=== PATIENT | female | born 1965 | race African-American/Black ===

== ENCOUNTER 2017-02-14 21:23 | Emergency (ER) | payer MEDICAID ==
[~2017-02-14] VITALS: Ht 162.6 cm; Wt 44.0 kg
[~2017-02-14 21:23] MED LIST: ALBUTEROL; ALLERGY MED
[2017-02-14] MEDS ORDERED: IPRA4AER IH (21:53)
[2017-02-14] MEDS ORDERED: NAPR-58 PO (21:53)
[2017-02-14] MEDS ORDERED: GABA-531 PO (21:53)
[2017-02-14] MEDS ORDERED: PRED20TA3 PO (21:53)
[2017-02-14] MEDS ORDERED: NICO21T TD (21:53)
[2017-02-14 22:41] LABS: APPEARANCE,URINE CLEAR (CLEAR); GLUCOSE, URINE (UA) NEGATIVE (NEGATIVE); KETONES,URINE NEGATIVE (NEGATIVE); LEUKOCYTE ESTERASE ,URINE NEGATIVE (NEGATIVE); OCCULT BLOOD,URINE NEGATIVE (NEGATIVE); PROTEIN,URINE NEGATIVE (NEGATIVE)
[2017-02-14 22:42] LABS: RBC,URINE 0-2 /HPF (0-2); SQUAMOUS EPITHELIAL CELL,UR Few /LPF (None Seen); WBC,URINE 0-2 /HPF (0-5)
[2017-02-14] MEDS: SODIUM CHLORIDE 0.9% 1,000 ML IV ONE (22:44)
[2017-02-14 22:47] LABS: ANION GAP 9 mmol/L (8-16); BASOPHILS # (AUTO) 0.08 K/uL (0.00-0.20); BASOPHILS % (AUTO) 1.4 % (0.0-2.0); CALCIUM, TOTAL 9.2 mg/dL (8.8-10.5); CARBON DIOXIDE 30 mmol/L (22-29); CHLORIDE 106 mmol/L (98-107); CREATININE 0.99 mg/dL (0.60-1.30); EOSINOPHILS % (AUTO) 1.63 % (1.0-6.0); GLOMERULAR FILTR. RATE CALC > 60 mL/min (>60); HEMATOCRIT 42.8 % (36-46); LYMPHOCYTES # (AUTO) 1.8 K/uL (1.0-4.8); LYMPHOCYTES % (AUTO) 28.7 % (22.0-44.0); MEAN CORPUSCULAR HEMOGLOBIN 29.8 pg (26.0-34.0); MEAN CORPUSCULAR HGB CONC 32.6 G/dL (31.0-37.0); MEAN CORPUSCULAR VOLUME 91 fL (80-100); MONOCYTES # (AUTO) 0.7 K/uL (0.1-1.0); MONOCYTES % (AUTO) 11.7 % (2.0-9.0); NEUTROPHILS # (AUTO) 3.5 K/uL (1.8-7.7); NEUTROPHILS % (AUTO) 56.6 % (40.0-70.0); PLATELET COUNT (AUTO) 178 K/uL (150-450); POTASSIUM 3.7 mmol/L (3.5-5.1); RED BLOOD CELL COUNT(AUTO) 4.69 MIL/uL (4.00-5.20); SODIUM SERUM 145 mmol/L (136-145); UREA NITROGEN, BLOOD 12 mg/dL (7-18); WHITE BLOOD COUNT (AUTO) 6.1 K/uL (4.5-11.0)
[2017-02-14 22:53] LABS: ALANINE AMINOTRANSFERASE 23 U/L (12-78); ALBUMIN 3.2 g/dL (3.4-5.0); ASPARTATE AMINOTRANSFERASE 22 U/L (15-37); BILIRUBIN,TOTAL 0.2 mg/dL (0.1-1.0); TOTAL PROTEIN, SERUM 6.8 g/dL (6.4-8.2)
[2017-02-14 23:16] LABS: RBC MORPHOLOGY COMMENT NORMAL RBC MORPH
[2017-02-15] MEDS ORDERED: IPRATROPIUM BROMIDE 0.5 MG/2.5 ML NEB SOLUTION NEB ONE (01:45)
[2017-02-15] MEDS ORDERED: ALBUTEROL SULFATE 2.5 MG/0.5 ML NEB SOLUTION NEB ONE (01:45)
[2017-02-15] MEDS ORDERED: MAGNESIUM SULFATE 2 GM in DEXTROSE 5%-WATER 50 ML IV ONE (01:45)
[2017-02-15] MEDS ORDERED: DEXAMETHASONE SOD PHOS 4 MG/ML 5 ML VIAL IVP ONE (01:45)
[2017-02-15] MEDS ORDERED: CefTRIAXone 1 GM/DEXTROSE 50 ML IV ONE (02:30)
[2017-02-15 06:50] VITALS: BP 123/84
== END 2017-02-15 07:02 | disposition home or self-care (01) ==
LOC: EMS 21:26
DX: J44.1 Chronic obstructive pulmonary disease with (acute) exacerbation (principal); F17.210 Nicotine dependence, cigarettes, uncomplicated
CPT/HCPCS: 36415; 71020; 80053; 80307; 81001; 85025; 94640; 96365; 96366; 96367; 96375; 99285; J3475; J7060; J0696; J1100; J7030

== ENCOUNTER 2019-05-17 12:14 | Inpatient (IN) | payer MEDICAID, OTHER ==
[~2019-05-17] VITALS: Ht 162.6 cm; Wt 47.7 kg
[~2019-05-17 12:14] MED LIST changes: +GABA-531 PO; +IPRA4AER IH; +NAPR-1025 PO; +NICO21T TD; +PRED20TA3 PO
[2019-05-17] MEDS ORDERED: CLOT15CR5 TP (13:00)
[2019-05-17] MEDS ORDERED: ALBU8HFA IH (13:00)
[2019-05-17] MEDS ORDERED: AMLO5TAB9 PO (13:00)
[2019-05-17] MEDS ORDERED: KETO15CR2 TP (13:00)
[2019-05-17] MEDS ORDERED: GABA-529 PO (13:00)
[2019-05-17] MEDS ORDERED: PRED20 PO (13:00)
[2019-05-17] MEDS ORDERED: HYDR-4061 PO (13:00)
[2019-05-17] MEDS ORDERED: IPRATROPIUM BROMIDE 0.5 MG/2.5 ML NEB SOLUTION NEB ONE (13:00)
[2019-05-17] MEDS ORDERED: AZIT250T9 PO (13:00)
[2019-05-17] MEDS ORDERED: ALBUTEROL SULFATE 2.5 MG/0.5 ML NEB SOLUTION NEB ONE ×2 (13:00→14:30)
[2019-05-17] MEDS ORDERED: AMOX TR/POT CLAV 875 MG/125 MG TABLET PO ONE (14:15)
[2019-05-17] MEDS ORDERED: MethylPREDNISolone SOD SUCC 125 MG/2 ML VIAL IVP ONE (14:15)
[2019-05-17 14:31] LABS: EOSINOPHILS % (AUTO) 0.4 % (1.0-6.0); HEMOGLOBIN 15.2 g/dL (12.0-16.0); LYMPHOCYTES # (AUTO) 1.2 K/uL (1.0-4.8); LYMPHOCYTES % (AUTO) 14.8 % (22.0-44.0); MEAN CORPUSCULAR HEMOGLOBIN 29.1 pg (26.0-34.0); MEAN CORPUSCULAR HGB CONC 32.9 G/dL (31.0-37.0); MEAN CORPUSCULAR VOLUME 88 fL (80-100); MONOCYTES # (AUTO) 0.9 K/uL (0.1-1.0); NEUTROPHILS % (AUTO) 72.8 % (40.0-70.0); PLATELET COUNT (AUTO) 175 K/uL (150-450); RED BLOOD CELL COUNT(AUTO) 5.21 MIL/uL (4.00-5.20); RED CELL DISTRIBUTION WIDTH 14.1 % (11.5-14.5)
[2019-05-17 14:44] LABS: INR 1.1 (0.9-1.1); PROTHROMBIN TIME 10.8 SEC (9.4-11.6)
[2019-05-17 14:46] LABS: ANION GAP 8 mmol/L (8-16); CALCIUM, TOTAL 8.7 mg/dL (8.8-10.5); CARBON DIOXIDE 29 mmol/L (22-29); CHLORIDE 102 mmol/L (98-107); CREATININE 0.87 mg/dL (0.60-1.30); GLOMERULAR FILTR. RATE CALC > 60 mL/min (>60); GLUCOSE,RANDOM 73 mg/dL (70-110); POTASSIUM 4.4 mmol/L (3.5-5.1); SODIUM SERUM 139 mmol/L (136-145); UREA NITROGEN, BLOOD 12 mg/dL (7-18)
[2019-05-17 14:52] LABS: B-TYPE NATRIURETIC PEPTIDE 51 pg/mL (0-100)
[2019-05-17 14:59] LABS: ALANINE AMINOTRANSFERASE 22 U/L (12-78); ALBUMIN 3.5 g/dL (3.4-5.0); ALKALINE PHOSPHATASE 84 U/L (46-116); ASPARTATE AMINOTRANSFERASE 24 U/L (15-37); BILIRUBIN,TOTAL 0.7 mg/dL (0.1-1.0); HCG,QUANTITATIVE 6 mIU/mL (0-6)
[2019-05-17] MEDS ORDERED: LEVOFLOXACIN 750 MG/D5% WATER 150 ML IV ONE (15:15)
[2019-05-17] MEDS ORDERED: ACETAMINOPHEN 325 MG TABLET PO PRN ×2 (16:00→23:30)
[2019-05-17] MEDS ORDERED: 0.9% SODIUM CHLORIDE 10 ML SYRINGE IVP PRN (16:00)
[2019-05-17] MEDS ORDERED: SODIUM CHLORIDE 0.9% 250 ML IV ONE (17:18)
[2019-05-17 18:36] VITALS: BP 143/92
[2019-05-17 18:37] VITALS: BP 143/92
[2019-05-17] MEDS ORDERED: PNEUMOCOCCAL VACCINE POLYVALENT 0.5 ML VIAL [PPSV23] IM ONE (18:45)
[2019-05-17] MEDS ORDERED: INFLUENZA VIRUS VACCINE QVS 2019-20 (3YR+)/PF 60 MCG/0.5 ML SYRINGE IM ONE (18:45)
[2019-05-17 20:06] VITALS: BP 102/65
[2019-05-17] MEDS ORDERED: ALBUTEROL SULFATE 2.5 MG/0.5 ML NEB SOLUTION NEB PRN (23:30)
[2019-05-17] MEDS ORDERED: IPRATROPIUM BROMIDE 0.5 MG/2.5 ML NEB SOLUTION NEB PRN (23:30)
[2019-05-17] MEDS: MethylPREDNISolone SOD SUCC 125 MG/2 ML VIAL IVP SCH (23:40)
[2019-05-18 00:50] VITALS: BP 99/65
[2019-05-18] MEDS: ALBUTEROL SULFATE 2.5 MG/0.5 ML NEB SOLUTION NEB SCH ×6 (02:45→23:23)
[2019-05-18] MEDS: IPRATROPIUM BROMIDE 0.5 MG/2.5 ML NEB SOLUTION NEB SCH ×6 (02:45→23:23)
[2019-05-18] MEDS: HYDROCODONE/ACETAMINOPHEN 5-325 MG TABLET PO PRN ×3 (03:19→23:47)
[2019-05-18] MEDS: OXYGEN THERAPY IH SCH ×3 (03:19→20:27)
[2019-05-18 05:20] VITALS: BP 108/74
[2019-05-18] MEDS: MethylPREDNISolone SOD SUCC 125 MG/2 ML VIAL IVP SCH ×4 (06:19→23:37)
[2019-05-18 07:56] VITALS: BP 114/72
[2019-05-18 07:57] LABS: BASOPHILS % (AUTO) 0.1 % (0.0-2.0); EOSINOPHILS % (AUTO) 0 % (1.0-6.0); HEMATOCRIT 44.1 % (36-46); HEMOGLOBIN 14.8 g/dL (12.0-16.0); LYMPHOCYTES # (AUTO) 0.5 K/uL (1.0-4.8); LYMPHOCYTES % (AUTO) 8.6 % (22.0-44.0); MEAN CORPUSCULAR HEMOGLOBIN 29.7 pg (26.0-34.0); MEAN CORPUSCULAR HGB CONC 33.5 G/dL (31.0-37.0); MEAN CORPUSCULAR VOLUME 89 fL (80-100); MONOCYTES # (AUTO) 0.1 K/uL (0.1-1.0); MONOCYTES % (AUTO) 1.8 % (2.0-9.0); NEUTROPHILS # (AUTO) 5.3 K/uL (1.8-7.7); PLATELET COUNT (AUTO) 198 K/uL (150-450); RED BLOOD CELL COUNT(AUTO) 4.98 MIL/uL (4.00-5.20)
[2019-05-18 07:58] LABS: NEUTROPHILS % (AUTO) 89.5 % (40.0-70.0)
[2019-05-18 08:13] LABS: ALANINE AMINOTRANSFERASE 20 U/L (12-78); ALBUMIN 3.2 g/dL (3.4-5.0); ALKALINE PHOSPHATASE 75 U/L (46-116); ANION GAP 9 mmol/L (8-16); ASPARTATE AMINOTRANSFERASE 15 U/L (15-37); BILIRUBIN,TOTAL 0.3 mg/dL (0.1-1.0); CALCIUM, TOTAL 8.7 mg/dL (8.8-10.5); CARBON DIOXIDE 28 mmol/L (22-29); CHLORIDE 101 mmol/L (98-107); CREATININE 0.97 mg/dL (0.60-1.30); GLOMERULAR FILTR. RATE CALC > 60 mL/min (>60); GLUCOSE,RANDOM 162 mg/dL (70-110); POTASSIUM 4.5 mmol/L (3.5-5.1); SODIUM SERUM 138 mmol/L (136-145); TOTAL PROTEIN, SERUM 7.1 g/dL (6.4-8.2)
[2019-05-18 08:34] LABS: UREA NITROGEN, BLOOD 21 mg/dL (7-18)
[2019-05-18] MEDS: AmLODIPine BESYLATE 5 MG TABLET PO SCH (08:58)
[2019-05-18] MEDS: GABAPENTIN 300 MG CAPSULE PO SCH (08:58)
[2019-05-18] MEDS: NICOTINE 21 MG/24 HOUR PATCH TD SCH (08:58)
[2019-05-18] MEDS ORDERED: AmLODIPine BESYLATE 5 MG TABLET PO SCH (09:00)
[2019-05-18] MEDS ORDERED: NICOTINE 21 MG/24 HOUR PATCH TD ONE (10:00)
[2019-05-18] MEDS ORDERED: GuaiFENesin/CODEINE [SUGAR FREE] 200-20MG/10 ML SYRUP UDCUP PO PRN (10:00)
[2019-05-18] MEDS: CefTRIAXone 1 GM/DEXTROSE 50 ML IV SCH (10:58)
[2019-05-18] MEDS: NAPROXEN 500 MG TABLET PO SCH ×2 (10:58→20:27)
[2019-05-18 11:29] VITALS: BP 125/79
[2019-05-18] MEDS: AZITHROMYCIN 500 MG/NS 250 ML IV SCH (12:01)
[2019-05-18 12:07] LABS: PHOSPHORUS 2.7 mg/dL (2.5-4.9)
[2019-05-18 16:32] VITALS: BP 118/68
[2019-05-18 20:29] VITALS: BP 119/74
[2019-05-19] VITALS (7 sets, daily range): BP systolic 122–139; BP diastolic 69–91
[2019-05-19] MEDS: IPRATROPIUM BROMIDE 0.5 MG/2.5 ML NEB SOLUTION NEB SCH ×6 (03:00→23:10)
[2019-05-19] MEDS: ALBUTEROL SULFATE 2.5 MG/0.5 ML NEB SOLUTION NEB SCH ×6 (03:00→23:10)
[2019-05-19] MEDS: MethylPREDNISolone SOD SUCC 125 MG/2 ML VIAL IVP SCH ×3 (05:21→17:42)
[2019-05-19] MEDS: HYDROCODONE/ACETAMINOPHEN 5-325 MG TABLET PO PRN ×2 (05:21→18:32)
[2019-05-19] MEDS: NICOTINE 21 MG/24 HOUR PATCH TD SCH ×2 (07:59→09:24)
[2019-05-19] MEDS ORDERED: NAPHAZOLINE/PHENIR 0.025-0.3% 15 ML OPHTHALMIC SOLUTION OU PRN (08:15)
[2019-05-19] MEDS: GABAPENTIN 300 MG CAPSULE PO SCH (09:22)
[2019-05-19] MEDS: NAPROXEN 500 MG TABLET PO SCH ×2 (09:22→20:15)
[2019-05-19] MEDS: BACLOFEN 10 MG TABLET PO SCH ×3 (09:23→20:15)
[2019-05-19] MEDS: AmLODIPine BESYLATE 5 MG TABLET PO SCH (09:23)
[2019-05-19] MEDS: OXYGEN THERAPY IH SCH ×2 (09:24→20:15)
[2019-05-19] MEDS: CefTRIAXone 1 GM/DEXTROSE 50 ML IV SCH (09:37)
[2019-05-19] MEDS: AZITHROMYCIN 500 MG/NS 250 ML IV SCH (10:38)
[2019-05-20] MEDS: ALBUTEROL SULFATE 2.5 MG/0.5 ML NEB SOLUTION NEB SCH ×6 (03:00→23:12)
[2019-05-20] MEDS: IPRATROPIUM BROMIDE 0.5 MG/2.5 ML NEB SOLUTION NEB SCH ×6 (03:00→23:12)
[2019-05-20] MEDS ORDERED: SODIUM CHLORIDE 0.9% 100 ML ONE (05:01)
[2019-05-20] MEDS: MethylPREDNISolone SOD SUCC 125 MG/2 ML VIAL IVP SCH ×2 (05:31)
[2019-05-20 05:40] VITALS: BP 121/71
[2019-05-20 07:51] VITALS: BP 124/78
[2019-05-20] MEDS: OXYGEN THERAPY IH SCH ×2 (08:00→19:48)
[2019-05-20] MEDS: BACLOFEN 10 MG TABLET PO SCH ×3 (08:17→20:12)
[2019-05-20] MEDS: NAPROXEN 500 MG TABLET PO SCH ×2 (08:17→20:12)
[2019-05-20] MEDS: AmLODIPine BESYLATE 5 MG TABLET PO SCH (08:17)
[2019-05-20] MEDS: GABAPENTIN 300 MG CAPSULE PO SCH (08:17)
[2019-05-20] MEDS: NICOTINE 21 MG/24 HOUR PATCH TD SCH ×2 (08:18)
[2019-05-20] MEDS ORDERED: NICO-704 TD (10:56)
[2019-05-20] MEDS: CefTRIAXone 1 GM/DEXTROSE 50 ML IV SCH (11:31)
[2019-05-20 11:48] VITALS: BP 119/73
[2019-05-20] MEDS: AZITHROMYCIN 500 MG/NS 250 ML IV SCH (12:15)
[2019-05-20 15:32] VITALS: BP 138/108
[2019-05-20] MEDS: HYDROCODONE/ACETAMINOPHEN 5-325 MG TABLET PO PRN (16:59)
[2019-05-20] MEDS: MethylPREDNISolone SOD SUCC 40 MG/ML VIAL IVP SCH ×2 (16:59→23:08)
[2019-05-20] MEDS: BENZOCAINE 10% 7 GM GEL TP PRN (18:26)
[2019-05-20 20:12] VITALS: BP 134/78
[2019-05-20] MEDS: CLOTRIMAZOLE 1% 15 GM CREAM TP SCH (20:39)
[2019-05-20 23:45] VITALS: BP 138/80
[2019-05-21] MEDS: IPRATROPIUM BROMIDE 0.5 MG/2.5 ML NEB SOLUTION NEB SCH ×3 (03:00→11:29)
[2019-05-21] MEDS: ALBUTEROL SULFATE 2.5 MG/0.5 ML NEB SOLUTION NEB SCH ×3 (03:00→11:29)
[2019-05-21 04:43] VITALS: BP 138/81
[2019-05-21] MEDS: HYDROCODONE/ACETAMINOPHEN 5-325 MG TABLET PO PRN (04:45)
[2019-05-21 07:35] VITALS: BP 135/94
[2019-05-21] MEDS: MethylPREDNISolone SOD SUCC 40 MG/ML VIAL IVP SCH (09:20)
[2019-05-21] MEDS: AmLODIPine BESYLATE 5 MG TABLET PO SCH (09:20)
[2019-05-21] MEDS: BENZOCAINE 10% 7 GM GEL TP PRN (09:21)
[2019-05-21] MEDS: BACLOFEN 10 MG TABLET PO SCH (09:22)
[2019-05-21] MEDS: GABAPENTIN 300 MG CAPSULE PO SCH (09:22)
[2019-05-21] MEDS: CLOTRIMAZOLE 1% 15 GM CREAM TP SCH (09:23)
[2019-05-21] MEDS: OXYGEN THERAPY IH SCH (09:25)
[2019-05-21] MEDS: NAPROXEN 500 MG TABLET PO SCH (09:26)
[2019-05-21] MEDS: CefTRIAXone 1 GM/DEXTROSE 50 ML IV SCH (10:21)
[2019-05-21] MEDS ORDERED: PRED-284 PO (10:34)
[2019-05-21] MEDS ORDERED: ALBU8HFA IH (10:35)
[2019-05-21] MEDS: NICOTINE 21 MG/24 HOUR PATCH TD SCH (11:08)
[2019-05-21] MEDS: AZITHROMYCIN 500 MG/NS 250 ML IV SCH (11:18)
[2019-05-21 11:35] VITALS: BP 148/89
== END 2019-05-21 15:45 | disposition home or self-care (01) | DRG 139 ==
LOC: EMS 12:17 → 5N 16:27
PROVIDERS: ADMIT Hospitalist; ATTEND Hospitalist
DX: J18.9 Pneumonia, unspecified organism (principal); J96.20 Acute and chronic respiratory failure, unspecified whether with hypoxia or hypercapnia; J44.0 Chronic obstructive pulmonary disease with (acute) lower respiratory infection; I10 Essential (primary) hypertension; B35.3 Tinea pedis; F17.210 Nicotine dependence, cigarettes, uncomplicated; J44.1 Chronic obstructive pulmonary disease with (acute) exacerbation; Z82.49 Family history of ischemic heart disease and other diseases of the circulatory system
CPT/HCPCS: 83735; 84100; 90686; 90732; 93005; 93306; 94640; 96365; 96375; 97116; 97162; 97530; J0456; J0696; J1956; J2920; J2930; J7050

== ENCOUNTER 2021-01-27 12:31 | Inpatient (IN) | payer OTHER ==
[~2021-01-27] VITALS: Ht 160 cm; Wt 51.6 kg
[~2021-01-27 12:31] MED LIST changes: +ALBU8HFA IH; -ALBUTEROL; -ALLERGY MED; -GABA-531 PO; -NAPR-1025 PO; -NICO21T TD; +PRED-284 PO; +PRED20 PO; -PRED20TA3 PO
[2021-01-27] MEDS ORDERED: 0.9% SODIUM CHLORIDE 10 ML SYRINGE IVP PRN ×3 (13:15→18:00)
[2021-01-27] MEDS ORDERED: ALBUTEROL SULFATE HFA 90 MCG/PUFF 8 GM INHALER IH ONE (13:15)
[2021-01-27 14:28] LABS: COVID AG,FIA SOURCE NASOPHARYNGEAL
[2021-01-27 14:32] LABS: BASOPHILS % (AUTO) 1.2 % (0.0-2.0); EOSINOPHILS % (AUTO) 1.9 % (1.0-6.0); HEMATOCRIT 49.4 % (36-46); LYMPHOCYTES # (AUTO) 1.3 K/uL (1.0-4.8); LYMPHOCYTES % (AUTO) 22.2 % (22.0-44.0); MEAN CORPUSCULAR HEMOGLOBIN 29.1 pg (26.0-34.0); MEAN CORPUSCULAR HGB CONC 32.4 G/dL (31.0-37.0); MEAN CORPUSCULAR VOLUME 90 fL (80-100); MONOCYTES # (AUTO) 0.6 K/uL (0.1-1.0); MONOCYTES % (AUTO) 9.9 % (2.0-9.0); NEUTROPHILS # (AUTO) 3.7 K/uL (1.8-7.7); NEUTROPHILS % (AUTO) 64.8 % (40.0-70.0); PLATELET COUNT (AUTO) 187 K/uL (150-450); RED BLOOD CELL COUNT(AUTO) 5.51 MIL/uL (4.00-5.20); RED CELL DISTRIBUTION WIDTH 15.8 % (11.5-14.5)
[2021-01-27 14:45] LABS: D-DIMER 0.51 mg/L FEU (0.00-0.50)
[2021-01-27 14:48] LABS: LACTIC ACID 1.7 mmol/L (0.4-2.0)
[2021-01-27 14:51] LABS: ALANINE AMINOTRANSFERASE 7 U/L (12-78); ALBUMIN 3.9 g/dL (3.4-5.0); ALKALINE PHOSPHATASE 82 U/L (46-116); ANION GAP 14 mmol/L (8-16); ASPARTATE AMINOTRANSFERASE 23 U/L (15-37); BILIRUBIN,TOTAL 0.9 mg/dL (0.1-1.0); CALCIUM, TOTAL 9.2 mg/dL (8.8-10.5); CARBON DIOXIDE 24 mmol/L (22-29); CHLORIDE 98 mmol/L (98-107); CREATININE 0.87 mg/dL (0.60-1.30); GLOMERULAR FILTR. RATE CALC > 60 mL/min (>60); POTASSIUM 4.3 mmol/L (3.5-5.1); SODIUM SERUM 136 mmol/L (136-145); TOTAL PROTEIN, SERUM 7.6 g/dL (6.4-8.2); UREA NITROGEN, BLOOD 12 mg/dL (7-18)
[2021-01-27 14:53] LABS: GLUCOSE,RANDOM 49 mg/dL (70-110)
[2021-01-27 14:58] LABS: B-TYPE NATRIURETIC PEPTIDE 16 pg/mL (0-100)
[2021-01-27] MEDS ORDERED: IOHEXOL 350 MG/ML 75 ML VIAL ONE (15:15)
[2021-01-27] MEDS ORDERED: SODIUM CHLORIDE 0.9% 100 ML ONE (15:15)
[2021-01-27 15:55] LABS: GLUCOMETER DEV NAME(LOC) ERT.5; GLUCOSE,POINT OF CARE 120 MG/DL (70-110)
[2021-01-27 15:58] LABS: INFLUENZA TYPE A NEGATIVE FOR TYPE A (NEGATIVE); INFLUENZA TYPE B NEGATIVE FOR TYPE B (NEGATIVE)
[2021-01-27] MEDS ORDERED: MethylPREDNISolone SOD SUCC 125 MG/2 ML VIAL IVP ONE (17:15)
[2021-01-27] MEDS ORDERED: BISACODYL 10 MG RECTAL RECTAL SUPPOSITORY PR PRN (18:00)
[2021-01-27] MEDS ORDERED: IPRATROPIUM BROMIDE 0.5 MG/2.5 ML NEB SOLUTION NEB PRN (18:00)
[2021-01-27] MEDS ORDERED: ONDANSETRON HCL 4 MG/2 ML VIAL IVP PRN (18:00)
[2021-01-27] MEDS ORDERED: DOCUSATE SODIUM 100 MG CAPSULE PO PRN (18:00)
[2021-01-27] MEDS ORDERED: MAGNESIUM HYDROXIDE SUSPENSION 30 ML UDCUP PO PRN (18:00)
[2021-01-27] MEDS ORDERED: ALBUTEROL SULFATE 2.5 MG/0.5 ML NEB SOLUTION NEB PRN (18:00)
[2021-01-27] MEDS: THIAMINE 100 MG TABLET PO SCH (18:15)
[2021-01-27] MEDS: FOLIC ACID 1 MG TABLET PO SCH (18:15)
[2021-01-27] MEDS: MULTIVITAMINS WITH MINERALS, THERAPEUTIC TABLET PO SCH (18:15)
[2021-01-27 18:22] LABS: GLUCOSE,POINT OF CARE 198 MG/DL (70-110)
[2021-01-27] MEDS: IPRATROPIUM BROMIDE 0.5 MG/2.5 ML NEB SOLUTION NEB SCH (19:55)
[2021-01-27] MEDS: ALBUTEROL SULFATE 2.5 MG/0.5 ML NEB SOLUTION NEB SCH (19:55)
[2021-01-27 20:19] VITALS: BP 114/84
[2021-01-27] MEDS ORDERED: PNEUMOCOCCAL VACCINE POLYVALENT 0.5 ML VIAL [PPSV23] IM. ONE (22:15)
[2021-01-27] MEDS: ACETAMINOPHEN 325 MG TABLET PO PRN (22:54)
[2021-01-27] MEDS: MethylPREDNISolone SOD SUCC 40 MG/ML VIAL IVP SCH (23:54)
[2021-01-27 23:59] VITALS: BP 99/66
[2021-01-28] MEDS: HEPARIN SODIUM,PORCINE 5,000 UNITS/ML VIAL SQ SCH ×3 (01:23→16:00)
[2021-01-28 04:19] VITALS: BP 101/58
[2021-01-28] MEDS: MethylPREDNISolone SOD SUCC 40 MG/ML VIAL IVP SCH ×3 (05:04→16:58)
[2021-01-28] MEDS: ACETAMINOPHEN 325 MG TABLET PO PRN ×2 (05:04→20:16)
[2021-01-28 07:19] LABS: ALANINE AMINOTRANSFERASE 20 U/L (12-78); ALBUMIN 3.2 g/dL (3.4-5.0); ALKALINE PHOSPHATASE 73 U/L (46-116); ANION GAP 6 mmol/L (8-16); ASPARTATE AMINOTRANSFERASE 17 U/L (15-37); BILIRUBIN,TOTAL 0.3 mg/dL (0.1-1.0); CALCIUM, TOTAL 9.1 mg/dL (8.8-10.5); CARBON DIOXIDE 29 mmol/L (22-29); CHLORIDE 101 mmol/L (98-107); CREATININE 0.89 mg/dL (0.60-1.30); GLOMERULAR FILTR. RATE CALC > 60 mL/min (>60); GLUCOSE,RANDOM 245 mg/dL (70-110); POTASSIUM 4.9 mmol/L (3.5-5.1); SODIUM SERUM 136 mmol/L (136-145); TOTAL PROTEIN, SERUM 6.9 g/dL (6.4-8.2); UREA NITROGEN, BLOOD 13 mg/dL (7-18)
[2021-01-28 07:23] LABS: BASOPHILS % (AUTO) 0.3 % (0.0-2.0); EOSINOPHILS % (AUTO) 0 % (1.0-6.0); HEMATOCRIT 47.9 % (36-46); HEMOGLOBIN 15.7 g/dL (12.0-16.0); LYMPHOCYTES # (AUTO) 0.5 K/uL (1.0-4.8); LYMPHOCYTES % (AUTO) 10.6 % (22.0-44.0); MEAN CORPUSCULAR HEMOGLOBIN 29.3 pg (26.0-34.0); MEAN CORPUSCULAR HGB CONC 32.8 G/dL (31.0-37.0); MEAN CORPUSCULAR VOLUME 89 fL (80-100); MONOCYTES # (AUTO) 0.2 K/uL (0.1-1.0); MONOCYTES % (AUTO) 3.3 % (2.0-9.0); NEUTROPHILS # (AUTO) 4.2 K/uL (1.8-7.7); PLATELET COUNT (AUTO) 173 K/uL (150-450); RED BLOOD CELL COUNT(AUTO) 5.36 MIL/uL (4.00-5.20); RED CELL DISTRIBUTION WIDTH 16.2 % (11.5-14.5)
[2021-01-28 07:25] LABS: NEUTROPHILS % (AUTO) 85.8 % (40.0-70.0)
[2021-01-28 07:53] VITALS: BP 105/73
[2021-01-28] MEDS: ALBUTEROL SULFATE 2.5 MG/0.5 ML NEB SOLUTION NEB SCH ×3 (07:53→19:57)
[2021-01-28] MEDS: IPRATROPIUM BROMIDE 0.5 MG/2.5 ML NEB SOLUTION NEB SCH ×3 (07:53→19:57)
[2021-01-28] MEDS: PANTOPRAZOLE SODIUM 40 MG DR TABLET PO SCH (09:31)
[2021-01-28] MEDS: THIAMINE 100 MG TABLET PO SCH (09:31)
[2021-01-28] MEDS: FOLIC ACID 1 MG TABLET PO SCH (09:31)
[2021-01-28] MEDS: MULTIVITAMINS WITH MINERALS, THERAPEUTIC TABLET PO SCH (09:31)
[2021-01-28 11:31] VITALS: BP 105/59
[2021-01-28] MEDS ORDERED: SODIUM CHLORIDE 0.9% 100 ML ONE ×2 (12:01→21:12)
[2021-01-28] MEDS ORDERED: IOHEXOL 350 MG/ML 75 ML VIAL ONE (12:02)
[2021-01-28 16:02] VITALS: BP 109/77
[2021-01-28 19:56] VITALS: BP 111/75
[2021-01-28] MEDS ORDERED: IOHEXOL 350 MG/ML 100 ML VIAL ONE (21:12)
[2021-01-28 23:40] VITALS: BP 117/62
[2021-01-29] MEDS: HEPARIN SODIUM,PORCINE 5,000 UNITS/ML VIAL SQ SCH ×4 (00:05→23:35)
[2021-01-29] MEDS: MethylPREDNISolone SOD SUCC 40 MG/ML VIAL IVP SCH ×5 (00:06→23:35)
[2021-01-29] MEDS: ALBUTEROL SULFATE 2.5 MG/0.5 ML NEB SOLUTION NEB SCH ×4 (02:00→20:19)
[2021-01-29] MEDS: IPRATROPIUM BROMIDE 0.5 MG/2.5 ML NEB SOLUTION NEB SCH ×4 (02:00→20:19)
[2021-01-29] MEDS: ACETAMINOPHEN 325 MG TABLET PO PRN ×2 (03:13→20:14)
[2021-01-29 04:42] VITALS: BP 121/78
[2021-01-29 06:21] LABS: BASOPHILS % (AUTO) 0.3 % (0.0-2.0); EOSINOPHILS % (AUTO) 0 % (1.0-6.0); HEMATOCRIT 46.9 % (36-46); HEMOGLOBIN 15.1 g/dL (12.0-16.0); LYMPHOCYTES # (AUTO) 0.7 K/uL (1.0-4.8); MEAN CORPUSCULAR HEMOGLOBIN 29.2 pg (26.0-34.0); MEAN CORPUSCULAR HGB CONC 32.1 G/dL (31.0-37.0); MEAN CORPUSCULAR VOLUME 91 fL (80-100); MONOCYTES # (AUTO) 0.8 K/uL (0.1-1.0); MONOCYTES % (AUTO) 5.4 % (2.0-9.0); NEUTROPHILS # (AUTO) 13.1 K/uL (1.8-7.7); PLATELET COUNT (AUTO) 199 K/uL (150-450); RED BLOOD CELL COUNT(AUTO) 5.17 MIL/uL (4.00-5.20); RED CELL DISTRIBUTION WIDTH 16.6 % (11.5-14.5)
[2021-01-29 06:28] LABS: ANION GAP 3 mmol/L (8-16); CALCIUM, TOTAL 9.8 mg/dL (8.8-10.5); CARBON DIOXIDE 32 mmol/L (22-29); CHLORIDE 102 mmol/L (98-107); CREATININE 0.82 mg/dL (0.60-1.30); GLOMERULAR FILTR. RATE CALC > 60 mL/min (>60); GLUCOSE,RANDOM 103 mg/dL (70-110); POTASSIUM 4.8 mmol/L (3.5-5.1); SODIUM SERUM 137 mmol/L (136-145); UREA NITROGEN, BLOOD 19 mg/dL (7-18)
[2021-01-29 06:30] LABS: NEUTROPHILS % (AUTO) 89.3 % (40.0-70.0)
[2021-01-29 08:28] VITALS: BP 102/61
[2021-01-29] MEDS: MULTIVITAMINS WITH MINERALS, THERAPEUTIC TABLET PO SCH (08:52)
[2021-01-29] MEDS: PANTOPRAZOLE SODIUM 40 MG DR TABLET PO SCH (08:52)
[2021-01-29] MEDS: FOLIC ACID 1 MG TABLET PO SCH (08:52)
[2021-01-29] MEDS: THIAMINE 100 MG TABLET PO SCH (08:52)
[2021-01-29 09:03] LABS: PLATELET MORPHOLOGY COMMENT GIANT PLTS PRESENT
[2021-01-29 11:33] VITALS: BP 102/64
[2021-01-29 15:38] VITALS: BP 112/64
[2021-01-29 20:16] VITALS: BP 99/67
[2021-01-29] MEDS ORDERED: OxyCODONE HCL/ACETAMINOPHEN 5-325 MG TABLET PO ONE (21:00)
[2021-01-29 23:45] VITALS: BP 105/73
[2021-01-30] MEDS: IPRATROPIUM BROMIDE 0.5 MG/2.5 ML NEB SOLUTION NEB SCH ×4 (02:24→20:08)
[2021-01-30] MEDS: ALBUTEROL SULFATE 2.5 MG/0.5 ML NEB SOLUTION NEB SCH ×4 (02:24→20:07)
[2021-01-30 04:51] VITALS: BP 123/77
[2021-01-30] MEDS: MethylPREDNISolone SOD SUCC 40 MG/ML VIAL IVP SCH ×3 (06:25→21:09)
[2021-01-30 07:28] VITALS: BP 120/78
[2021-01-30] MEDS: FOLIC ACID 1 MG TABLET PO SCH (08:30)
[2021-01-30] MEDS: THIAMINE 100 MG TABLET PO SCH (08:30)
[2021-01-30] MEDS: MULTIVITAMINS WITH MINERALS, THERAPEUTIC TABLET PO SCH (08:30)
[2021-01-30] MEDS: PANTOPRAZOLE SODIUM 40 MG DR TABLET PO SCH (08:30)
[2021-01-30] MEDS: HEPARIN SODIUM,PORCINE 5,000 UNITS/ML VIAL SQ SCH ×3 (08:31→23:32)
[2021-01-30 11:45] VITALS: BP 124/83
[2021-01-30 14:05] VITALS: BP 124/72
[2021-01-30 14:14] LABS: BASOPHILS % (AUTO) 0.1 % (0.0-2.0); EOSINOPHILS % (AUTO) 0 % (1.0-6.0); HEMATOCRIT 43.9 % (36-46); LYMPHOCYTES # (AUTO) 0.2 K/uL (1.0-4.8); LYMPHOCYTES % (AUTO) 2.5 % (22.0-44.0); MEAN CORPUSCULAR HEMOGLOBIN 28.9 pg (26.0-34.0); MEAN CORPUSCULAR HGB CONC 31.8 G/dL (31.0-37.0); MEAN CORPUSCULAR VOLUME 91 fL (80-100); MONOCYTES # (AUTO) 0.2 K/uL (0.1-1.0); MONOCYTES % (AUTO) 2.9 % (2.0-9.0); NEUTROPHILS # (AUTO) 7.7 K/uL (1.8-7.7); PLATELET COUNT (AUTO) 183 K/uL (150-450); RED BLOOD CELL COUNT(AUTO) 4.84 MIL/uL (4.00-5.20); RED CELL DISTRIBUTION WIDTH 16.8 % (11.5-14.5)
[2021-01-30 14:16] LABS: NEUTROPHILS % (AUTO) 94.5 % (40.0-70.0)
[2021-01-30 14:38] LABS: ANION GAP 8 mmol/L (8-16); CALCIUM, TOTAL 9.8 mg/dL (8.8-10.5); CARBON DIOXIDE 30 mmol/L (22-29); CHLORIDE 103 mmol/L (98-107); CREATININE 1.02 mg/dL (0.60-1.30); GLOMERULAR FILTR. RATE CALC > 60 mL/min (>60); GLUCOSE,RANDOM 172 mg/dL (70-110); POTASSIUM 4.6 mmol/L (3.5-5.1); SODIUM SERUM 141 mmol/L (136-145); UREA NITROGEN, BLOOD 24 mg/dL (7-18)
[2021-01-30] MEDS: ACETAMINOPHEN 325 MG TABLET PO PRN (15:06)
[2021-01-30 15:30] LABS: PLATELET MORPHOLOGY COMMENT GIANT PLTS PRESENT
[2021-01-30] MEDS: TraMADol HCL 50 MG TABLET PO PRN (18:06)
[2021-01-30 19:55] VITALS: BP 120/74
[2021-01-30 22:25] VITALS: BP 141/86
[2021-01-31] MEDS: TraMADol HCL 50 MG TABLET PO PRN ×2 (00:05→10:55)
[2021-01-31] MEDS: ALBUTEROL SULFATE 2.5 MG/0.5 ML NEB SOLUTION NEB SCH ×4 (02:20→19:58)
[2021-01-31] MEDS: IPRATROPIUM BROMIDE 0.5 MG/2.5 ML NEB SOLUTION NEB SCH ×4 (02:20→19:58)
[2021-01-31 04:53] VITALS: BP 117/73
[2021-01-31 06:33] LABS: BASOPHILS % (AUTO) 0.2 % (0.0-2.0); EOSINOPHILS % (AUTO) 0 % (1.0-6.0); HEMATOCRIT 41.6 % (36-46); HEMOGLOBIN 13.3 g/dL (12.0-16.0); LYMPHOCYTES # (AUTO) 0.3 K/uL (1.0-4.8); LYMPHOCYTES % (AUTO) 4.6 % (22.0-44.0); MEAN CORPUSCULAR HEMOGLOBIN 28.9 pg (26.0-34.0); MEAN CORPUSCULAR VOLUME 90 fL (80-100); MONOCYTES # (AUTO) 0.4 K/uL (0.1-1.0); MONOCYTES % (AUTO) 6.4 % (2.0-9.0); NEUTROPHILS # (AUTO) 5.9 K/uL (1.8-7.7); PLATELET COUNT (AUTO) 157 K/uL (150-450); RED CELL DISTRIBUTION WIDTH 16.3 % (11.5-14.5)
[2021-01-31 06:53] LABS: ANION GAP 7 mmol/L (8-16); CALCIUM, TOTAL 9.4 mg/dL (8.8-10.5); CARBON DIOXIDE 31 mmol/L (22-29); CHLORIDE 99 mmol/L (98-107); GLOMERULAR FILTR. RATE CALC > 60 mL/min (>60); GLUCOSE,RANDOM 153 mg/dL (70-110); POTASSIUM 4.8 mmol/L (3.5-5.1); SODIUM SERUM 137 mmol/L (136-145); UREA NITROGEN, BLOOD 32 mg/dL (7-18)
[2021-01-31 06:54] LABS: NEUTROPHILS % (AUTO) 88.8 % (40.0-70.0)
[2021-01-31 06:55] LABS: PLATELET MORPHOLOGY COMMENT LARGE PLTS PRESENT
[2021-01-31 07:16] VITALS: BP 118/71
[2021-01-31] MEDS: MethylPREDNISolone SOD SUCC 40 MG/ML VIAL IVP SCH ×2 (09:29→20:42)
[2021-01-31] MEDS: PANTOPRAZOLE SODIUM 40 MG DR TABLET PO SCH (09:29)
[2021-01-31] MEDS: FOLIC ACID 1 MG TABLET PO SCH (09:29)
[2021-01-31] MEDS: MULTIVITAMINS WITH MINERALS, THERAPEUTIC TABLET PO SCH (09:29)
[2021-01-31] MEDS: THIAMINE 100 MG TABLET PO SCH (09:29)
[2021-01-31] MEDS: HEPARIN SODIUM,PORCINE 5,000 UNITS/ML VIAL SQ SCH ×2 (09:29→16:43)
[2021-01-31 11:05] VITALS: BP 125/92
[2021-01-31 15:34] VITALS: BP 120/71
[2021-01-31] MEDS ORDERED: ALBUTEROL SULFATE/IPRATROPIUM 100-20 MCG/SPRAY 4 GM INHALER IH PRN (16:00)
[2021-01-31 19:24] VITALS: BP 123/72
[2021-02-01] MEDS: HEPARIN SODIUM,PORCINE 5,000 UNITS/ML VIAL SQ SCH ×2 (00:29→08:42)
[2021-02-01 00:41] VITALS: BP 133/86
[2021-02-01] MEDS: ALBUTEROL SULFATE 2.5 MG/0.5 ML NEB SOLUTION NEB SCH ×2 (02:02→08:32)
[2021-02-01] MEDS: IPRATROPIUM BROMIDE 0.5 MG/2.5 ML NEB SOLUTION NEB SCH ×2 (02:02→08:32)
[2021-02-01 04:53] VITALS: BP 119/70
[2021-02-01] MEDS: TraMADol HCL 50 MG TABLET PO PRN (06:54)
[2021-02-01 08:00] VITALS: BP 127/76
[2021-02-01] MEDS: THIAMINE 100 MG TABLET PO SCH (08:42)
[2021-02-01] MEDS: MULTIVITAMINS WITH MINERALS, THERAPEUTIC TABLET PO SCH (08:42)
[2021-02-01] MEDS: FOLIC ACID 1 MG TABLET PO SCH (08:42)
[2021-02-01] MEDS: MethylPREDNISolone SOD SUCC 40 MG/ML VIAL IVP SCH (08:42)
[2021-02-01] MEDS: PANTOPRAZOLE SODIUM 40 MG DR TABLET PO SCH (08:42)
[2021-02-01] MEDS: ACETAMINOPHEN 325 MG TABLET PO PRN (08:54)
[2021-02-01] MEDS ORDERED: PredniSONE 20 MG TABLET PO ONE (11:45)
[2021-02-01] MEDS ORDERED: PRED10 PO (12:36)
[2021-02-01 13:02] VITALS: BP 124/80
== END 2021-02-01 14:20 | disposition home or self-care (01) | DRG 140 ==
LOC: EMS 12:32 → 5S 18:08
PROVIDERS: ADMIT Internal Medicine; ATTEND Internal Medicine
DX: J44.1 Chronic obstructive pulmonary disease with (acute) exacerbation (principal); J96.20 Acute and chronic respiratory failure, unspecified whether with hypoxia or hypercapnia; Z20.822 Contact with and (suspected) exposure to COVID-19; Z82.49 Family history of ischemic heart disease and other diseases of the circulatory system; E16.2 Hypoglycemia, unspecified
CPT/HCPCS: 71045; 71275; 80048; 80053; 82962; 83605; 83880; 84145; 84484; 85025; 85379; 85610; 85730; 87040; 87804; 93005; 93970; 94640; 99285; A9575; J1644; J2920; J2930; J3535; J7050; 36415-L1; 36415-TC; J7613; U0003